=== PATIENT | female | born 1965 | race Caucasian/White ===

== ENCOUNTER → 2017-11-01 16:58 | Outpatient (REF) | payer OTHER, MEDICARE, SELFPAY | LOC: LAB 16:58 | PROVIDERS: Visit Provider Urology | DX: R31.0 Gross hematuria (principal); R35.0 Frequency of micturition | CPT/HCPCS: 87086 ==

== ENCOUNTER → 2017-11-09 08:30 | Outpatient (CLI) | payer OTHER, MEDICARE, SELFPAY ==
[2017-11-09 09:16] LABS: Blood Urea Nitrogen 13 mg/dL (7-18); Creatinine,Serum 0.86 mg/dL (0.55-1.02); Estimated Glomerular Filt Rate 70 ml/min (>60); GFR (African American) 84 ML/MIN (>60)
--- NOTE | 2017-11-09 09:23 | CT_ITS ---
CT abdomen wo/w con CLINICAL INDICATION: ITS.REASON: HEMATURIA ORDERING PHYSICIAN: Jaylan Falcon MD PATIENT AGE: 52 years COMPARISON: None TECHNIQUE: Axial images obtained without and with contrast with sagittal and coronal reformats. PROCEDURE: Oral Contrast: None IV Contrast: 75 mL [id number]. FINDINGS: There is a 6 mm noncalcified nodule in the right lower lobe laterally area. Artifact is present in the lower thoracic spine from a epidural stimulation device There is diffuse fatty liver. Prior cholecystectomy without ductal dilatation. Spleen, adrenal glands, and pancreas have an unremarkable appearance. Rounded soft tissue density is present medial to the spleen measuring 17 mm consistent with a splenule as a normal variant. There is a nonobstructing 5 mm stone in the mid polar region of the left kidney. No ureteral calculi. No hydronephrosis or renal mass. There are few scattered small lymph nodes in the retroperitoneum. Urinary bladder decompressed with no evidence of stones. No intestinal obstruction or free air is evident. There is a small umbilical hernia containing fat. Unremarkable appendix. Sparse diverticula noted. No evidence of diverticulitis. No pelvic mass or abnormal fluid collection. There has been prior hysterectomy. No acute bony findings. IMPRESSION: 1. 5 mm nonobstructing left renal stone. 2. No acute abdominal or pelvic findings. 3. 6 mm right lower lobe pulmonary nodule. Consider [address] follow-up if patient is at high risk for lung neoplasm or 12 month follow-up if patient is low risk
== END ==
PROVIDERS: Family Provider Nurse Practitioner Family; PCP Nurse Practitioner Family; Visit Provider Urology
DX: R31.9 Hematuria, unspecified (principal)
CPT/HCPCS: 36415; 74170; 82565; 84520; Q9967

== ENCOUNTER → 2017-11-19 12:49 | Outpatient (CLI) | payer OTHER, MEDICARE, SELFPAY ==
--- NOTE | 2017-11-19 | XR_ITS ---
XR chest 2V Ordering Physician: Juventino Romero MD Patient Age: 52 years: Female HISTORY: ITS.REASON: LUNG NODULE TECHNIQUE: PA and lateral chest COMPARISON : Previous chest film December 2016 & January 2015 FINDINGS Lungs hyperexpanded but clear with nothing definitely acute. No focal pneumonia. The distal technique accentuates the interstitial pattern which I believe is upper normal. Heart damion and mediastinal structures are satisfactory. Chest wall unremarkable . The lungs are significantly clearer than they were on last year' 2016 s chest film and similar to the baseline 2014 CXR Stimulator devices are seen at the posterior aspect of the mid and lower T-spine unchanged since December 2016 CXR. T-spine unchanged on lateral view IMPRESSION: Nothing definitely acute. Lungs appear stable and clear. Similar to 2015.
== END ==
PROVIDERS: PCP Internal Medicine Adolescent Medicine; Referring Provider Internal Medicine Adolescent Medicine; Visit Provider Internal Medicine Adolescent Medicine
DX: R91.1 Solitary pulmonary nodule (principal)
CPT/HCPCS: 71046

== ENCOUNTER → 2019-03-16 12:22 | Outpatient (POV) | payer MEDICARE, SELFPAY | PROVIDERS: Visit Provider Specialist | DX: M79.642 Pain in left hand (principal) | CPT/HCPCS: 95886; 95908 ==

== ENCOUNTER → 2019-04-09 14:43 | Outpatient (CLI) | payer MEDICARE, SELFPAY ==
--- NOTE | 2019-04-09 14:47 | US_ITS ---
US Arterial Ankle Brachial Ind History: Claudication and rest pain Cold extremities, numbness in the feet, current smoker ORDERING PHYSICIAN: Teagan Mehta APRN PATIENT AGE: 54 years TECHNIQUE: Segmental pressures obtained of both right and left leg. These are compared to brachial blood pressure to yield index at each level sampled including summary MORE. The data sheets from the procedure are available in PACS FINDINGS Rest study only performed today No prior studies available for comparison. Blood pressures reported are in millimeters mercury. RIGHT LEG MORE = 1.1. RIGHT LEG TBI=.7 Brachial BP: 127 Thigh BP: 137 Calf BP: 140 Ankle PT: 145 Ankle DP : 146 Digit =92 LEFT LEG MORE = 1.2 LEFT LEG TBI= .6 Brachial BPD: 133 Thigh BP: 147 Calf BP: 154 Ankle PT:153 Ankle DP: 135 Digit = 81 Pulses and waveforms: Normal IMPRESSION: The ABIs as reported above are within normal limits. Waveforms and pulses are also unremarkable. The left TBI is slightly low suggesting small vessel disease
== END ==
PROVIDERS: PCP Nurse Practitioner Family; Visit Provider Nurse Practitioner Family
DX: E11.41 Type 2 diabetes mellitus with diabetic mononeuropathy (principal); E11.59 Type 2 diabetes mellitus with other circulatory complications
CPT/HCPCS: 93922

== ENCOUNTER → 2019-06-15 09:31 | Outpatient (CLI) | payer MEDICARE, SELFPAY ==
--- NOTE | 2019-06-15 09:35 | MM_ITS ---
PROCEDURE: MM DIG SCREENING MAMM BI W/CAD CLINICAL INDICATION: SCREENING COMPARISON: DIGMAMMS MAMMOGRAM SCREEN-ORAL SURGEON N/C from 12/20/2012 [facility] DIG MAMM-DX PAM from 06/26/2014 [facility] DIG MAMM-SCREEN PAM from 12/25/2014 [facility] DIG MAMM-SCREEN PAM W/CAD from 08/19/2017 TECHNIQUE: Standard CC and MLO images were obtained. R2 CAD reviewed. FINDINGS: Average fibroglandular tissue. Scattered asymmetries consistent with asymmetric fibroglandular tissue. No malignant appearing mass or microcalcification benign-appearing nodular densities in the axilla consistent with lymph nodes. Benign appearing calcifications IMPRESSION: BI-RAD Category: 2 Benign Finding(s) FOLLOW-UP: 1YR 1 Year Follow-up (A letter has been sent to the patient regarding results of the study.) Dictated by: Riley Ortiz MD 06/15/2019 10:09 Signed by: <Electronically signed by Riley Ortiz MD in [place]> 06/15/2019 10:09
== END ==
PROVIDERS: PCP Nurse Practitioner Family; Visit Provider Nurse Practitioner Family
DX: Z12.31 Encounter for screening mammogram for malignant neoplasm of breast (principal)
CPT/HCPCS: 77067

== ENCOUNTER → 2020-07-09 10:42 | Outpatient (CLI) | payer MEDICARE, SELFPAY ==
--- NOTE | 2020-07-09 10:45 | MM_ITS ---
PROCEDURE: MM DIG SCREENING MAMM BI W/CAD Digital Breast Tomosynthesis Included CLINICAL INDICATION: SCREENING There is no personal or family history of breast cancer. COMPARISON: MG [facility]MS[facility] DIG MAMM-SCREEN PAM from 12/25/2014 MG [facility] DIG MAMM-SCREEN PAM W/CAD from 08/19/2017 MG MM DIG SCREENING MAMM BI W/CAD from 06/15/2019 TECHNIQUE: Standard CC and MLO images and 3D Tomosynthesis was obtained. R2 CAD reviewed. FINDINGS: Fibroglandular densities are seen in the subareolar regions in the central portions of both breasts. There is stable asymmetric glandular elements central portion left breast. There are stable small nodes in both axilla 1 which shows punctate calcifications. There is no suspicious lesion and no suspicious microcalcifications. IMPRESSION: Mild to moderate breast density with no suspicious lesions seen BI-RAD Category: 2 Benign Finding(s) FOLLOW-UP: 1YR 1 Year Follow-up (A letter has been sent to the patient regarding results of the study.) Dictated by: Dr. Leroy West MD 07/11/2020 20:28 Dr. Leroy West MD in [place] 07/11/2020 20:28
== END ==
PROVIDERS: PCP Family Medicine; Visit Provider Family Medicine
DX: Z12.31 Encounter for screening mammogram for malignant neoplasm of breast (principal)
CPT/HCPCS: 77063; 77067